=== PATIENT | female | born 1995 | race Caucasian/White ===

== ENCOUNTER 2018-11-23 09:56 | Emergency (ER) | payer SELFPAY ==
[2018-11-23 10:08] VITALS: BP 108/66
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
== END 2018-11-23 11:19 | disposition home or self-care (01) ==
LOC: UCEAST 09:56
DX: R07.81 Pleurodynia (principal)
CPT/HCPCS: 71046; 99202; G0463

== ENCOUNTER 2018-12-08 09:44 | Emergency (ER) | payer SELFPAY ==
[2018-12-08 10:07] VITALS: BP 87/48
--- NOTE | 2018-12-08 10:45 | UC ---
Nausea/Vomiting/Diarrhea HPI - HPI Summary HPI Summary: 23-year-old woman comes in with a chief complaint of vomiting. This morning she felt well and when she used the bathroom when she urinated getting up off the toilet she had sudden onset of nausea and she vomited once. She reports it was bile in nature. She's also been having left ear pain for about a week and she wonders if the ear pain is associated with the nausea. She is one week late on her normal menstrual cycle. She is not sure if she is . No fevers no chills no runny nose. She reports that she does have fairly common dizzy spells sometimes it spending some time this lightheadedness that she's had ever since she was 19 years old. No abdominal pain. - History of Current Complaint Chief Complaint: UCGI Stated Complaint: VOMITING Time Seen by Provider: 12/08/18 10:27 Hx Last Menstrual Period: 1 week late Pain Intensity: 0 - Allergies/Home Medications Allergies/Adverse Reactions: Allergies Allergy/AdvReac Type Severity Reaction Status Date / Time No Known Allergies Allergy Verified 12/08/18 10:07 PMH/Surg Hx/FS Hx/Imm Hx Previously Healthy: Yes - Surgical History Surgical History: Yes Surgery Procedure, Year, and Place: wisdom tooth extraction - Family History Known Family History: Positive: Non-Contributory - Social History Alcohol Use: Rare Substance Use Type: None Smoking Status (MU): Never Smoked Tobacco Review of Systems All Other Systems Reviewed And Are Negative: Yes Constitutional: Positive: Other - dizziness Skin: Positive: Negative Eyes: Positive: Negative ENT: Positive: Ear Ache Respiratory: Positive: Negative Cardiovascular: Positive: Negative Gastrointestinal: Positive: Vomiting. Negative: Abdominal Pain Genitourinary: Positive: Negative Motor: Positive: Negative Neurovascular: Positive: Negative Musculoskeletal: Positive: Negative Neurological: Positive: Negative Psychological: Positive: Negative Is Patient Immunocompromised?: No Physical Exam Appearance: Well-Appearing, No Pain Distress, Well-Nourished Vital Signs: Initial Vital Signs Temp 98.4 F 12/08/18 10:02 Pulse 74 12/08/18 10:02 Resp 18 12/08/18 10:02 BP 87/48 12/08/18 10:02 Pulse Ox 99 12/08/18 10:02 Vital Signs Reviewed: Yes Eye Exam: Normal Eyes: Positive: Conjunctiva Clear ENT: Positive: Pharyngeal erythema, TM dull - left Neck: Positive: Supple Respiratory: Positive: Lungs clear, Normal breath sounds, No respiratory distress Cardiovascular: Positive: RRR Abdomen Description: Positive: Nontender, Soft. Negative: CVA Tenderness (R), CVA Tenderness (L) Musculoskeletal: Positive: Strength Intact, ROM Intact Neurological: Positive: Alert, Muscle Tone Normal Psychological: Positive: Age Appropriate Behavior Skin Exam: Normal Naus/Vom/Diarrhea Course/Dx - Course Course Of Treatment: Patient denies any UTI symptoms. Urine is being sent for culture. With the left serous otitis media that may be affecting her vestibular system causing dizziness and nausea and vomiting. Therefore we will treat with antibiotics for the serous otitis media. We'll also treat symptomatically for vertigo and nausea with meclizine and Zofran when necessary. No abdominal pain. Patient's to get reevaluated if worse or any questions or concerns. - Differential Dx/Diagnosis Provider Diagnosis: Acute serous otitis media, left ear, Dizziness, Vomiting Condition At Discharge: Stable Discharge - Sign-Out/Discharge Documenting (check all that apply): Patient Departure All imaging exams completed and their final reports reviewed: No Studies - Discharge Plan Condition: Stable Disposition: HOME Prescriptions: Amoxicillin/Clavulanate TAB* [Augmentin TAB 875*] 875 mg PO BID #20 tab Meclizine HCl [Motion Sickness Relief] 25 mg PO Q6HR PRN #15 tablet PRN Reason: Dizziness Ondansetron ODT TAB* [Zofran 4 MG Odt TAB*] 4 mg PO Q6H PRN #10 tab.odt PRN Reason: Vomiting Patient Education Materials: Acute Nausea and Vomiting (ED), Dizziness (ED), Serous Otitis Media (ED) Forms: *Work Release Referrals: [facility] [Outside] Additional Instructions: FOLLOW UP WITH YOUR DOCTOR IF NOT COMPLETELY IMPROVED. GET RECHECKED SOONER IF YOUR CONDITION WORSENS OR ANY QUESTIONS OR CONCERNS. - Billing Disposition and Condition Condition: STABLE Disposition: Home
== END 2018-12-08 11:34 | disposition home or self-care (01) ==
LOC: UCEAST 09:44
DX: R11.2 Nausea with vomiting, unspecified (principal); H65.92 Unspecified nonsuppurative otitis media, left ear; R42 Dizziness and giddiness
CPT/HCPCS: 81002; 81025; 87077; 87086; 87186; 99212; G0463